=== PATIENT | female | born 2000 | race Caucasian/White ===

== ENCOUNTER 2018-11-08 19:16 | Emergency (ER) | payer MEDICAID ==
[~2018-11-08] VITALS: Ht 162.6 cm; Wt 86.2 kg
[~2018-11-08 19:16] MED LIST: NOHOMEMEDICATIONS; NORCO 5-325 TA1 EACH PO
[2018-11-08] MEDS ORDERED: PRENATAL PO (19:43)
[2018-11-08 20:08] LABS: ABSOLUTE BASOPHILS 0.1 thou/uL (0.0-0.2); ABSOLUTE EOSINOPHILS 0.1 thou/uL (0.0-0.7); ABSOLUTE LYMPHOCYTES 2.2 thou/uL (0.8-5.3); ABSOLUTE MONOCYTES 0.6 thou/uL (0.0-1.2); ABSOLUTE NEUTROPHILS 4.5 thou/uL (1.6-8.1); BASOPHILS 0.8 %; EOSINOPHILS 1.2 %; HEMATOCRIT 36.6 % (37.0-47.0); HEMOGLOBIN 12.2 gm/dL (12.0-15.0); LYMPHOCYTES 29.8 %; MCH 28.6 pg (26.0-34.0); MCHC 33.5 g/dL (28.0-37.0); MCV 85.4 fL (80.0-100.0); MONOCYTES 7.5 %; MPV 10.1 fl. (7.2-11.1); NUCLEATED RBCS 0 /100WBC; PLATELET COUNT* 174 thou/uL (150-400); POLYS 60.7 %; RBC 4.28 mil/uL (4.20-5.00); RDW-CV 13.8 % (10.5-14.5); WBC 7.5 thou/uL (4.0-11.0)
[2018-11-08 20:21] LABS: URINE BILIRUBIN NEGATIVE (Negative); URINE BLOOD TRACE (Negative); URINE CLARITY CLEAR; URINE COLOR YELLOW; URINE GLUCOSE-RANDOM NEGATIVE (Negative); URINE NITRITE-REFLEX NEGATIVE (Negative); URINE PROTEIN NEGATIVE (Negative); URINE SPECIFIC GRAVITY >= 1.030 (1.005-1.030); URINE UROBILINOGEN 0.2 E.U./dl (0.2-1.0)
[2018-11-08 20:25] LABS: URINE KETONES 3+ (Negative); URINE LEUKOCYTES-REFLEX 2+ (Negative)
[2018-11-08 20:29] LABS: SQUAMOUS 0-3 Few /LPF (0-3); URINE RBC None Seen /HPF (0-2); URINE WBC-REFLEX 6-15 Few /HPF (0-5)
[2018-11-08 20:30] LABS: BACTERIA-REFLEX 1-9 Few /HPF (None Seen); CASTS None Seen /LPF (None Seen); CRYSTALS None Seen /LPF (None Seen)
[2018-11-08 20:41] LABS: ALBUMIN 3.5 g/dL (3.4-5.0); CALCIUM 8.8 mg/dL (8.5-10.1); CREATININE 0.8 mg/dL (0.6-1.3); POTASSIUM 3.4 mmol/L (3.5-5.1); TOTAL BILIRUBIN 0.2 mg/dL (<0.1-1.0); TOTAL PROTEIN 7.3 g/dL (6.4-8.2)
[2018-11-08] MEDS ORDERED: MACROBID 100 M100 M2 PO (21:03)
[2018-11-08 21:29] VITALS: BP 116/66
== END 2018-11-08 21:29 | disposition home or self-care (01) ==
LOC: M.ERS 19:16
PROVIDERS: Nurse Practitioner Family
DX: O20.0 Threatened abortion (principal); O23.41 Unspecified infection of urinary tract in pregnancy, first trimester; Z3A.01 Less than 8 weeks gestation of pregnancy; F17.210 Nicotine dependence, cigarettes, uncomplicated; O99.511 Diseases of the respiratory system complicating pregnancy, first trimester; J45.998 Other asthma

== ENCOUNTER 2021-07-22 01:54 | Emergency (ER) | payer OTHER, MEDICAID ==
[~2021-07-22] VITALS: Ht 162.6 cm; Wt 113.4 kg
[~2021-07-22 01:54] MED LIST changes: +MACROBID 100 M100 M2 PO; +PRENATAL PO
[2021-07-22 02:38] LABS: ABSOLUTE BASOPHILS 0.1 thou/uL (0.0-0.2); ABSOLUTE EOSINOPHILS 0.1 thou/uL (0.0-0.7); ABSOLUTE LYMPHOCYTES 2.1 thou/uL (0.8-5.3); ABSOLUTE MONOCYTES 0.5 thou/uL (0.0-1.2); ABSOLUTE NEUTROPHILS 7.7 thou/uL (1.6-8.1); BASOPHILS 0.6 %; EOSINOPHILS 0.7 %; HEMATOCRIT 40.2 % (37.0-47.0); HEMOGLOBIN 13.6 gm/dL (12.0-15.0); LYMPHOCYTES 20.4 %; MCH 28.6 pg (26.0-34.0); MCHC 33.8 g/dL (28.0-37.0); MCV 84.7 fL (80.0-100.0); MONOCYTES 4.5 %; MPV 10.9 fl. (7.2-11.1); NUCLEATED RBCS 0 /100WBC; PLATELET COUNT* 180 thou/uL (150-400); POLYS 73.8 %; RBC 4.74 mil/uL (4.20-5.00); WBC 10.4 thou/uL (4.0-11.0)
[2021-07-22 02:49] LABS: CALCIUM 8.8 mg/dL (8.5-10.1); POTASSIUM 3.4 mmol/L (3.5-5.1)
[2021-07-22 02:53] LABS: ALBUMIN 3.8 g/dL (3.4-5.0); TOTAL BILIRUBIN 0.3 mg/dL (<0.1-1.0); TOTAL PROTEIN 7.9 g/dL (6.4-8.2)
[2021-07-22 04:58] LABS: URINE BILIRUBIN NEGATIVE (Negative); URINE BLOOD NEGATIVE (Negative); URINE CLARITY CLEAR; URINE COLOR YELLOW; URINE GLUCOSE-RANDOM NEGATIVE (Negative); URINE KETONES 3+ (Negative); URINE NITRITE-REFLEX NEGATIVE (Negative); URINE PROTEIN TR (Negative); URINE UROBILINOGEN 0.2 E.U./dl (0.2-1.0)
[2021-07-22 04:59] LABS: URINE LEUKOCYTES-REFLEX TRACE (Negative)
[2021-07-22 05:22] VITALS: BP 135/48
[2021-07-22 05:43] LABS: BACTERIA-REFLEX >30 Many /HPF (None Seen); CASTS None Seen /LPF (None Seen); CRYSTALS None Seen /LPF (None Seen); MUCUS 4-6 Moderate strn/LPF (None Seen); SQUAMOUS 4-10 Moderate /LPF (0-3); TRANSITIONAL EPITHEL CELL 0-3 Few /LPF (None Seen); URINE RBC 3-10 Few /HPF (0-2)
== END 2021-07-22 05:22 | disposition home or self-care (01) ==
LOC: M.ERS 01:54
PROVIDERS: Personal Emergency Response Attendant
DX: R10.12 Left upper quadrant pain (principal); J45.909 Unspecified asthma, uncomplicated; F17.210 Nicotine dependence, cigarettes, uncomplicated

== ENCOUNTER 2021-10-01 03:19 | Emergency (ER) | payer OTHER, MEDICAID ==
[~2021-10-01] VITALS: Ht 162.6 cm; Wt 104.3 kg
[2021-10-01 04:21] LABS: HEMATOCRIT 38.6 % (37.0-47.0); HEMOGLOBIN 13.1 gm/dL (12.0-15.0); MCHC 33.9 g/dL (28.0-37.0); MCV 85.4 fL (80.0-100.0); MPV 10.4 fl. (7.2-11.1); RBC 4.52 mil/uL (4.20-5.00); RDW-CV 13.3 % (10.5-14.5); WBC 9.8 thou/uL (4.0-11.0)
[2021-10-01 04:29] LABS: CALCIUM 8.8 mg/dL (8.5-10.1); CREATININE 0.9 mg/dL (0.6-1.3); POTASSIUM 3.7 mmol/L (3.5-5.1)
[2021-10-01 04:33] LABS: ALBUMIN 3.7 g/dL (3.4-5.0); TOTAL BILIRUBIN 0.5 mg/dL (<0.1-1.0); TOTAL PROTEIN 7.6 g/dL (6.4-8.2)
[2021-10-01 05:24] LABS: URINE BLOOD NEGATIVE (Negative); URINE CLARITY CLEAR; URINE COLOR YELLOW; URINE GLUCOSE-RANDOM NEGATIVE (Negative); URINE LEUKOCYTES-REFLEX 1+ (Negative); URINE NITRITE-REFLEX NEGATIVE (Negative); URINE PROTEIN NEGATIVE (Negative); URINE SPECIFIC GRAVITY 1.015 (1.005-1.030)
[2021-10-01 05:28] LABS: URINE BILIRUBIN 1+ (Negative); URINE KETONES 3+ (Negative)
[2021-10-01 05:31] LABS: ACETEST (KETONE CONFIRMATORY) Moderate (Negative); ICTOTEST (BILI CONFIRMATORY) Negative (Negative)
[2021-10-01] MEDS ORDERED: ZOFRAN 4 MG ORAL4 MG PO (05:44)
[2021-10-01] MEDS ORDERED: HYDROCODON-ACE1 EAC7 PO (05:44)
[2021-10-01 06:22] LABS: CASTS None Seen /LPF (None Seen); SQUAMOUS >10 Many /LPF (0-3); URINE RBC None Seen /HPF (0-2); URINE WBC-REFLEX 6-15 Few /HPF (0-5)
[2021-10-01 06:23] LABS: AMORPHOUS PHOSPHATES Moderate /LPF (None Seen)
[2021-10-01 07:04] LABS: AMP/METHAMP Negative (Negative); BARBITURATES Negative (Negative); BENZODIAZEPINES Negative (Negative); COCAINE Negative (Negative); METHADONE Negative (Negative); OPIATES Negative (Negative); PCP Negative (Negative); THC POSITIVE (Negative)
[2021-10-01 07:13] VITALS: BP 109/66
== END 2021-10-01 07:14 | disposition home or self-care (01) ==
LOC: M.ERS 03:19
PROVIDERS: Personal Emergency Response Attendant
DX: K80.50 Calculus of bile duct without cholangitis or cholecystitis without obstruction (principal); E66.01 Morbid (severe) obesity due to excess calories; F17.210 Nicotine dependence, cigarettes, uncomplicated; Z68.39 Body mass index [BMI] 39.0-39.9, adult